=== PATIENT | female | born 1985 | race Caucasian/White ===

== ENCOUNTER 2016-10-23 12:03 | Emergency (ER) | payer OTHER ==
[~2016-10-23] VITALS: Ht 172.7 cm; Wt 65.2 kg
[~2016-10-23 12:03] MED LIST: ARIP1TAB8 PO; BUPR-79 PO; IBUP-103 PO
[2016-10-23 12:07] VITALS: TEMP 37.3; Ht 172.7 cm; Wt 65.2 kg
[2016-10-23 12:32] VITALS: PULSE 100; O2SAT 98
--- NOTE | 2016-10-23 12:38 | EMERGENCY ROOM VISIT NOTE ---
History Report prepared by Leigha: Krunal Love Under the Supervision of: Dr. Franco Mendoza D.O. First contact with patient: 12:11 Chief Complaint: MENTAL HEALTH EVALUATION Stated Complaint: SEVERE DEPRESSION/ANXIETY/STRESS, 10W History of Present Illness The patient is a 31 year old female who presents to the Emergency Room with complaints of constant depression beginning a few weeks prior to arrival. She states she is currently ten weeks , and she was taken off her anxiety and antidepressant medications. The patient notes she has recently been experiencing panic attacks, in which, she feels that she cannot breathe. The patient notes she called her OB, who referred the patient to the ED. She states she called her psychiatrist today and left a message but did not hear back. The patient notes she has had ultrasounds and workups for her normal . She states this is her third , in which, she had a previous baby and an . The patient notes she has a history of anxiety and depression, in which, she has been hospitalized in the past. She states she was last admitted to the [facility] last year. The patient notes she was on Abilify, Wellbutrin, and Xanax, and she is currently still on Wellbutrin. She states she was tapered off Xanax 2-3 weeks ago. The patient notes she has a history of IV drug use. 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 She states she has Hepatitis C and tested negative for HIV. The patient notes she feels safe at home. She denies thoughts of hurting herself or the baby, hearing voices, vaginal bleeding, and urinary symptoms. Source of History: patient Onset: few weeks CASINO ATTENDANT Position: other (global) Quality: other (depression) Timing: constant Associated Symptoms: No urinary symptoms Note: Associated symptoms: anxiety attacks Review of Systems See HPI for pertinent positives & negatives. A total of 10 systems reviewed and were otherwise negative. Past Medical & Surgical Medical Problems: (1) (2) ANXIETY STATE NOS (3) DEPRESSIVE DISORDER NEC (4) DRUG ABUSE NEC-UNSPEC (5) Hepatitis C (6) HISTORY OF TOBACCO USE (7) Vaginal delivery Family History Diabetes mellitus Heart disease Social History Smoking Status: Former Smoker Alcohol Use: none Drug Use: heroin, marijuana Marital Status: single Occupation Status: unemployed Current/Historical Medications Scheduled Aripiprazole (Abilify), 15 MG PO DAILY Bupropion (Wellbutrin Sr), 150 MG PO DAILY Hydroxyzine Pamoate (Vistaril), 25 MG PO Q6 Scheduled PRN Ibuprofen Tab (Advil), 400-600 MG PO Q8 PRN for Headache or Pain Allergies Coded Allergies: No Known Allergies (Unverified , 07/15/15) Physical Exam Vital Signs Date Time Temp Pulse Resp B/P Pulse Ox O2 Delivery O2 Flow Rate FiO2 10/23/16 13:30 20 155/95 10/23/16 12:32 100 18 158/64 98 Room Air 10/23/16 12:07 37.3 97 20 126/80 100 Room Air Physical Exam GENERAL: Patient is awake, alert, and mildly anxious appearing and tearful. EYES: The conjunctivae are clear. The pupils are round and reactive. EARS, NOSE, MOUTH AND THROAT: The nose is without any evidence of any deformity. Mucous membranes are moist tongue is midline NECK: The neck is nontender and supple. RESPIRATORY: Normal respiratory effort is noted there is no evidence of wheezing rhonchi or rales CARDIOVASCULAR: Regular rate and rhythm noted there no murmurs rubs or gallops normal S1 normal S2 GASTROINTESTINAL: The abdomen is soft. Bowel sounds are present in all quadrants. Abdomen is nontender MUSCULOSKELETAL/EXTREMITIES: There is no evidence of gross deformity full range of motion is noted in the hips and shoulders SKIN: There is no obvious evidence of any rash. There are no petechiae, pallor or cyanosis noted. NEUROLOGIC: Patient is awake alert and oriented x3 strength is symmetric patellar reflexes are 2+ bilaterally PSYCH: Tearful and depressed appearing. Currently denying suicidal and homicidal ideation. Makes good eye contact. Affect is flat. Medical Decision & Procedures Medications Administered Medications (Trade) Dose Ordered Sig/Dashawn Route Start Time Stop Time Status Last Admin Dose Admin Hydroxyzine HCl (Vistaril Tab) 25 mg NOW STAT PO 10/23/16 13:20 10/23/16 13:22 DC 10/23/16 13:26 25 MG ED Course 1215: The patient was evaluated in room A5. A complete history and physical examination were performed. 1320: Upon reevaluation, the patient is doing well. I discussed the results and treatment plan with her. She verbalized agreement of the treatment plan. The patient was discharged home. Medical Decision Etiologies such as mood disorder, infection, hypoglycemia, electrolyte abnormalities, cardiac sources, intracerebral event, toxicologic, neurologic, as well as others were entertained. Nursing notes reviewed. The patient is a 31-year-old female who presented to the emergency department for a mental health evaluation. The patient is a 31-year-old female who presented to emergency department for a mental health evaluation. The patient is currently . The patient stop taking some of her mental health medications because she was not comfortable taking these medications while she was . The patient started having very significant anxiety symptoms. She is very tearful and depressed. She is currently not suicidal or homicidal. She does not appear to be a threat to herself or others. She was evaluated by the emergency department mental health nurse case manager. She did not meet criteria for involuntary admission. The case was discussed with [facility]. They recommended starting the patient on Vistaril into if she could get back in with her primary psychiatrist for any further medication recommendations. She was encouraged to rest and avoid any strenuous activity. She was also encouraged to continue all medications as prescribed. She was also encouraged to call crisis or return to the emergency department immediately if symptoms change worsen or the need arises. Otherwise she was encouraged to follow-up with her therapist as soon as possible. Impression Primary Impression: Anxiety Additional Impression: Depression Scribe Attestation The scribe's documentation has been prepared under my direction and personally reviewed by me in its entirety. I confirm that the note above accurately reflects all work, treatment, procedures, and medical decision making performed by me. Departure Information Dispostion Home / Self-Care Prescriptions Hydroxyzine Pamoate (VISTARIL) 25 Mg Cap 25 MG PO Q6 for Anxiety/Insomnia, #25 CAP Prov: Franco Mendoza, DO 10/23/16 Referrals Arnav Gagnon M.D. (PCP) Forms HOME CARE DOCUMENTATION FORM, IMPORTANT VISIT INFORMATION, Work Instructions Patient Instructions Anxiety Disorder, Depression Counseling, [facility] Additional Instructions Follow-up with your therapist as soon as possible. Rest and avoid any strenuous activity. Call crisis or return to the emergency department immediately if symptoms change worsen or the need arises. Problem Qualifiers Additional Impression: Depression Depression Type: unspecified Qualified Codes: F32.9 - Major depressive disorder, single episode, unspecified
[2016-10-23] MEDS ORDERED: HYDR1CAP85 PO (13:10)
[2016-10-23] MEDS ORDERED: hydrOXYzine HCL 25 MG TAB PO STA (13:20)
[2016-10-23 13:30] VITALS: BP 155/95
== END 2016-10-23 13:29 | disposition home or self-care (01) ==
LOC: C.EDB 12:04 → C.EDA 13:29
DX: F41.9 Anxiety disorder, unspecified (principal); F32.9 Major depressive disorder, single episode, unspecified; Z83.3 Family history of diabetes mellitus; Z82.49 Family history of ischemic heart disease and other diseases of the circulatory system; Z87.891 Personal history of nicotine dependence; F19.90 Other psychoactive substance use, unspecified, uncomplicated; F12.90 Cannabis use, unspecified, uncomplicated

== ENCOUNTER 2016-11-07 19:21 | Emergency (ER) | payer OTHER ==
[~2016-11-07] VITALS: Ht 170.2 cm; Wt 64.1 kg
[2016-11-07 19:30] VITALS: Ht 170.2 cm; Wt 64.1 kg
[2016-11-07] MEDS ORDERED: BUPR8SUB19 SL (19:51)
[2016-11-07] MEDS ORDERED: VALA500T60 PO (19:51)
[2016-11-07 20:02] LABS: BASO % 0.3 %; BASO ABS # 0.02 K/uL (0-0.2); COMPLETE YES; EOS % 2.5 %; HEMATOCRIT 36.2 % (37-47); IG% 0.2 %; LYMPH % 48.4 %; MEAN CELL VOLUME 87.2 fL (80-100); MEAN CORPUSCULAR HEMOGLOBIN 31.6 pg (25-34); MEAN CORPUSCULAR HGB CONC 36.2 g/dl (32-36); MEAN PLATELET VOLUME 9.3 fL (7.4-10.4); MONO % 5.2 %; NEUT % 43.4 %; PLATELET COUNT 258 K/uL (130-400); RED BLOOD COUNT 4.15 M/uL (4.2-5.4)
[2016-11-07 20:11] LABS: PARTIAL THROMBOPLASTIN RATIO 1.1; PROTHROMBIN TIME (PATIENT) 11.1 SECONDS (9.0-12.0)
[2016-11-07 20:25] LABS: BUN/CREATININE RATIO 11.4 (10-20); CREATININE 0.56 mg/dl (0.60-1.20); POTASSIUM 3.3 mmol/L (3.5-5.1)
[2016-11-07 20:28] LABS: ALB/GLOB RATIO 1.1 (0.9-2)
[2016-11-07 20:38] LABS: URINE APPEARANCE CLOUDY (CLEAR); URINE BILIRUBIN NEG (NEG); URINE COLOR YELLOW; URINE NITRITE NEG (NEG); URINE PH 7.5 (4.5-7.5); URINE SPECIFIC GRAVITY 1.011 (1.000-1.030); UROBILINOGEN NEG (NEG)
[2016-11-07 20:41] LABS: MANUAL MICROSCOPIC REQUIRED? NO; REVIEW REQ? NO
--- NOTE | 2016-11-07 22:10 | DIAGNOSTIC IMAGING REPORT ---
ULTRASOUND OF THE PELVIS CLINICAL HISTORY: Vaginal bleeding. . COMPARISON STUDY: Pelvic ultrasound dated 05/09/2013. TECHNIQUE: Real-time, grayscale, and color flow sonography of the pelvis is performed transabdominally. Images are reviewed in the transverse and longitudinal planes. FINDINGS: Uterus: The gravid uterus is normal in size and heterogeneous in echotexture, measuring 10.8 cm in length. Gestation: The there is a single live uterine gestation with a heart rate of 161 bpm. The crown-rump length measured 5.4 cm, corresponding to estimated age of 12 weeks 2 days. Ovaries: The ovaries are normal in size and morphology. The right ovary measures 3.3 x 1.3 x 1.5 cm and the left ovary measures 2.8 x 2.6 x 2.2 cm. A follicle is noted on the left. Normal Doppler waveforms are shown within both ovaries. Pelvis: There is no free fluid in the cul-de-sac. No concerning adnexal lesion is seen. IMPRESSION: 1. There is a single live intrauterine gestation with an estimated age of 12 weeks 2 days by crown-rump length measurement. 2. No acute sonographic abnormality is identified in the pelvis. Electronically signed by: Vern Vaughan M.D. 11/07/2016 10:08 PM Dictated Date/Time: 11/07/2016 10:05 PM
--- NOTE | 2016-11-07 22:32 | EMERGENCY ROOM VISIT NOTE ---
History Report prepared by Leigha: Aaliyah Vargas Under the Supervision of: Adelita GarciaO. First contact with patient: 19:33 Chief Complaint: VAGINAL BLEEDING Stated Complaint: BLEEDING,12 WKS PREG History of Present Illness The patient is a 31 year old female who presents to the Emergency Room with complaints of intermittent vaginal bleeding beginning 1 hour MAMMALOGIST. The patient is 12 weeks . She is . She has not had any vaginal spotting with this , but has been experiencing morning sickness. She took a hot bath tonight and then went to the bathroom. She urinated and when she was wiping she noticed some bright red blood on the toilet paper. She states that it was not too heavy and there were no clots present. The patient denies any recent trauma or injury. She last had intercourse 2 nights ago. The patient denies abnormal vaginal discharge, abdominal pain, nausea, vomiting, diarrhea, and any recent heavy lifting. She is unsure what her blood type is. She had an US at 7 weeks which showed an IUP. Source of History: patient Onset: 1 hour MAMMALOGIST Position: other (vagina) Symptom Intensity: minimal Quality: other (bleeding) Timing: intermittent Associated Symptoms: No abdominal pain, No diarrhea, No nausea, No vomiting Note: The patient denies any recent trauma or injury. The patient denies abnormal vaginal discharge and any recent heavy lifting. Review of Systems See HPI for pertinent positives & negatives. A total of 10 systems reviewed and were otherwise negative. Past Medical & Surgical Medical Problems: (1) (2) ANXIETY STATE NOS (3) DEPRESSIVE DISORDER NEC (4) DRUG ABUSE NEC-UNSPEC (5) Hepatitis C (6) HISTORY OF TOBACCO USE (7) Vaginal delivery Family History Diabetes mellitus Heart disease Social History Smoking Status: Former Smoker Alcohol Use: none Drug Use: heroin, marijuana Marital Status: in relationship Housing Status: lives with family Occupation Status: employed Current/Historical Medications Scheduled Buprenorphine Hcl (Subutex), 1 TAB SL DAILY Multivit/Min/Iron/Fol Ac/Pren ( Vitamin), 1 TAB PO DAILY Valacyclovir (Valtrex), 500 MG PO DAILY Allergies Coded Allergies: No Known Allergies (Unverified , 11/07/16) Physical Exam Vital Signs Date Time Temp Pulse Resp B/P Pulse Ox O2 Delivery O2 Flow Rate FiO2 11/07/16 19:30 37.2 98 18 117/71 100 Room Air Physical Exam GENERAL: alert, well appearing, well nourished, no distress, non-toxic, sitting up in bed. EYE EXAM: normal conjunctiva OROPHARYNX: no exudate, no erythema, lips, buccal mucosa, and tongue normal and mucous membranes are moist NECK: supple, no nuchal rigidity, no adenopathy, non-tender LUNGS: Clear to auscultation. Normal chest wall mechanics HEART: no murmurs, S1 normal and S2 normal ABDOMEN: abdomen soft, non-tender, multiple old incisions, normo-active bowel sounds, no masses, no rebound or guarding. PELVIC: Normal external genitalia, normal vaginal mucosa, cervix is closed. Scant amount of dark pink blood present, no active bleeding. BACK: Back is symmetrical on inspection and there is no deformity, no midline tenderness, no CVA tenderness. SKIN: no rashes and no bruising UPPER EXTREMITIES: upper extremities are grossly normal. LOWER EXTREMITIES: No pitting edema. NEURO EXAM: Normal sensorium, cranial nerves II-XII grossly intact, normal speech, no gross weakness of arms, no gross weakness of legs. Medical Decision & Procedures ER Provider Diagnostic Interpretation: ULTRASOUND OF THE PELVIS CLINICAL HISTORY: Vaginal bleeding. . COMPARISON STUDY: Pelvic ultrasound dated 05/09/2013. TECHNIQUE: Real-time, grayscale, and color flow sonography of the pelvis is performed transabdominally. Images are reviewed in the transverse and longitudinal planes. FINDINGS: Uterus: The gravid uterus is normal in size and heterogeneous in echotexture, measuring 10.8 cm in length. Gestation: The there is a single live uterine gestation with a heart rate of 161 bpm. The crown-rump length measured 5.4 cm, corresponding to estimated age of 12 weeks 2 days. Ovaries: The ovaries are normal in size and morphology. The right ovary measures 3.3 x 1.3 x 1.5 cm and the left ovary measures 2.8 x 2.6 x 2.2 cm. A follicle is noted on the left. Normal Doppler waveforms are shown within both ovaries. Pelvis: There is no free fluid in the cul-de-sac. No concerning adnexal lesion is seen. IMPRESSION: 1. There is a single live intrauterine gestation with an estimated age of 12 weeks 2 days by crown-rump length measurement. 2. No acute sonographic abnormality is identified in the pelvis. Electronically signed by: Vern Vaughan M.D. 11/07/2016 10:08 PM Dictated Date/Time: 11/07/2016 10:05 PM Laboratory Results 11/07/16 19:47 Red Blood Count 4.15, Mean Corpuscular Volume 87.2, Mean Corpuscular Hemoglobin 31.6, Mean Corpuscular Hemoglobin Concent 36.2, Mean Platelet Volume 9.3, Neutrophils (%) (Auto) 43.4, Lymphocytes (%) (Auto) 48.4, Monocytes (%) (Auto) 5.2, Eosinophils (%) (Auto) 2.5, Basophils (%) (Auto) 0.3, Neutrophils # (Auto) 2.78, Lymphocytes # (Auto) 3.10, Monocytes # (Auto) 0.33, Eosinophils # (Auto) 0.16, Basophils # (Auto) 0.02 11/07/16 19:47 Test 11/07/16 19:47 11/07/16 20:05 White Blood Count 6.40 K/uL (4.8-10.8) Red Blood Count 4.15 M/uL (4.2-5.4) Hemoglobin 13.1 g/dL (12.0-16.0) Hematocrit 36.2 % (37-47) Mean Corpuscular Volume 87.2 fL (80-100) Mean Corpuscular Hemoglobin 31.6 pg (25-34) Mean Corpuscular Hemoglobin Concent 36.2 g/dl (32-36) Platelet Count 258 K/uL (130-400) Mean Platelet Volume 9.3 fL (7.4-10.4) Neutrophils (%) (Auto) 43.4 % Lymphocytes (%) (Auto) 48.4 % Monocytes (%) (Auto) 5.2 % Eosinophils (%) (Auto) 2.5 % Basophils (%) (Auto) 0.3 % Neutrophils # (Auto) 2.78 K/uL (1.4-6.5) Lymphocytes # (Auto) 3.10 K/uL (1.2-3.4) Monocytes # (Auto) 0.33 K/uL (0.11-0.59) Eosinophils # (Auto) 0.16 K/uL (0-0.5) Basophils # (Auto) 0.02 K/uL (0-0.2) RDW Standard Deviation 41.4 fL (36.4-46.3) RDW Coefficient of Variation 12.9 % (11.5-14.5) Immature Granulocyte % (Auto) 0.2 % Immature Granulocyte # (Auto) 0.01 K/uL (0.00-0.02) Prothrombin Time 11.1 SECONDS (9.0-12.0) Prothromb Time International Ratio 1.0 (0.9-1.1) Activated Partial Thromboplast Time 29.3 SECONDS (21.0-31.0) Partial Thromboplastin Ratio 1.1 Anion Gap 8.0 mmol/L (3-11) Est Creatinine Clear Calc Drug Dose 142.9 ml/min Estimated GFR () 145.0 Estimated GFR (Non- 125.1 BUN/Creatinine Ratio 11.4 (10-20) Calcium Level 9.0 mg/dl (8.5-10.1) Total Bilirubin 0.5 mg/dl (0.2-1) Aspartate Amino Transf (AST/SGOT) 61 U/L (15-37) Alanine Aminotransferase (ALT/SGPT) 145 U/L (12-78) Alkaline Phosphatase 46 U/L (45-117) Total Protein 7.6 gm/dl (6.4-8.2) Albumin 4.0 gm/dl (3.4-5.0) Globulin 3.6 gm/dl (2.5-4.0) Albumin/Globulin Ratio 1.1 (0.9-2) Human Chorionic Gonadotropin, Quant 09818 mIU/mL Urine Color YELLOW Urine Appearance CLOUDY (CLEAR) Urine pH 7.5 (4.5-7.5) Urine Specific Dillon 1.011 (1.000-1.030) Urine Protein NEG (NEG) Urine Glucose (UA) NEG (NEG) Urine Ketones NEG (NEG) Urine Occult Blood NEG (NEG) Urine Nitrite NEG (NEG) Urine Bilirubin NEG (NEG) Urine Urobilinogen NEG (NEG) Urine Leukocyte Esterase NEG (NEG) Urine WBC (Auto) 1-5 /hpf (0-5) Urine RBC (Auto) 0-4 /hpf (0-4) Urine Hyaline Casts (Auto) 1-5 /lpf (0-5) Urine Epithelial Cells (Auto) 10-20 /lpf (0-5) Urine Bacteria (Auto) NEG (NEG) Laboratory results per my review. ED Course ED COURSE: Vital signs were reviewed and showed normal vitals. The patients medical record was reviewed The above diagnostic studies were performed and reviewed. ED treatments and interventions as stated above. 1932: The patient was evaluated in room B10. A complete history and physical examination was performed. 2113: The patient is upset. She wants to know why nothing is being done and why she has not had an ultrasound yet. I explained to her that the ER is busy and she is next in line for US. I updated her on her lab-work. 2118: At this time I performed a pelvic exam. Please see the physical examination for my findings. 2217: Upon reevaluation, the patient is feeling better and resting comfortably. I discussed my findings with the patient and she understands and agrees with the treatment plan. Based on the patients age, coexisting illnesses, exam and lab findings the decision to treat as an outpatient was made. The patient remained stable while under my care. The patient appeared well at the time of discharge. Medical Decision Differential diagnoses includes but is not limited to gastritis, peptic ulcer disease, GERD, gallbladder disease, pancreatitis, small bowel obstruction, acute coronary syndrome, pericarditis, ischemic bowel, irritable bowel disease, irritable bowel syndrome, appendicitis, diverticulitis, malignancy, hernia, urinary tract infection, torsion, /ectopic , perforation, trauma, infectious. Patient is a 31-year-old female who is 12 weeks' present that presents the ER for a small amount of vaginal bleeding. She denies any trauma or recent intercourse. No fevers. She has no abdominal pain. Labs including CBC, BMP, was unremarkable. Labs show a mild transaminitis distant with her previous hepatitis. Beta hCG was elevated. UA was negative. Patient is AB+. Ultrasound was unremarkable. Pelvic exam shows a closed cervix. She was updated in regards to findings and was discharged to follow-up with OB in the next 1-2 days. She was instructed on strict pelvic rest. Discussed with Pt concerning signs and symptoms to watch out for. Pt was instructed to follow up with their PCP and discussed with the patient their option to return to the ED at anytime for persistent or worsening symptoms. The appropriate anticipatory guidance and out-patient management, including indications for return to the emergency department, were explained at length to the patient and understood. Impression Primary Impression: Vaginal bleeding Scribe Attestation The scribe's documentation has been prepared under my direction and personally reviewed by me in its entirety. I confirm that the note above accurately reflects all work, treatment, procedures, and medical decision making performed by me. Departure Information Dispostion Home / Self-Care Referrals Arnav Gagnon M.D. (PCP) Forms HOME CARE DOCUMENTATION FORM, IMPORTANT VISIT INFORMATION, WORK / SCHOOL INSTRUCTIONS Patient Instructions Bleeding Early Preg, [facility] Additional Instructions Please follow up with your Oncologist within next 1-2 days. Any worsening of your symptoms, please return to the ED immediately. This includes persistent bleeding, going through 1 pad an hour, passing tissue, severe pain, passing out, or any other concerning signs or symptoms from your standpoint. Please remain on pelvic rest for the next week. This means absolutely nothing in the vagina during this time period.
[2016-11-07 22:36] VITALS: BP 117/71; PULSE 98; TEMP 37.2; O2SAT 100
== END 2016-11-07 22:37 | disposition home or self-care (01) ==
LOC: C.EDB 19:22
DX: N93.9 Abnormal uterine and vaginal bleeding, unspecified (principal); F41.9 Anxiety disorder, unspecified; Z86.19 Personal history of other infectious and parasitic diseases; Z87.891 Personal history of nicotine dependence; F12.90 Cannabis use, unspecified, uncomplicated; F19.90 Other psychoactive substance use, unspecified, uncomplicated; Z3A.12 12 weeks gestation of pregnancy

== ENCOUNTER 2017-01-09 16:31 | Emergency (ER) | payer OTHER ==
[~2017-01-09] VITALS: Ht 172.7 cm; Wt 67.0 kg
[~2017-01-09 16:31] MED LIST changes: -ARIP1TAB8 PO; -BUPR-79 PO; +BUPR8SUB19 SL; -IBUP-103 PO; +VALA500T60 PO
[2017-01-09 16:38] VITALS: TEMP 37; Ht 172.7 cm; Wt 67.0 kg
[2017-01-09] MEDS ORDERED: OXYCODONE/ACETAMINOPHEN 5-325 TAB PO STA (17:04)
[2017-01-09] MEDS ORDERED: OXYC-57 PO (17:08)
--- NOTE | 2017-01-09 17:18 | EMERGENCY ROOM VISIT NOTE ---
History Report prepared by Leigha: Kd Armendariz Under the Supervision of: Dr. Vern John M.D. First contact with patient: 16:42 Chief Complaint: OTHER COMPLAINT Stated Complaint: VAGINAL SWELLING, PAIN AND BRUISING History of Present Illness The patient is a 31 year old female who presents to the Emergency Room with complaints of constant vaginal pain beginning 6 hours ago. She currently rates her discomfort an 8/10 in severity. The patient states that she was making breakfast this morning and went to pick something up off the ground. 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 The patient reports that she did not notice her daughter's chair behind her, and as she squatted, the chair hit her vaginal area. She states that she stayed on the ground, crying, waiting for her boyfriend to hear her and help her. The patient notes she put ice on it and took Tylenol. She reports she was seen at urgent care and was sent here for further evaluation. She denies any vaginal bleeding. The patient reports that she had an ultrasound the other day that showed the baby is developing properly. Source of History: patient Onset: 6 hours ago Position: other (vagina) Symptom Intensity: 8/10 Timing: constant Note: Denies vaginal bleeding Review of Systems See HPI for pertinent positives & negatives. A total of 10 systems reviewed and were otherwise negative. Past Medical & Surgical Medical Problems: (1) (2) ANXIETY STATE NOS (3) DEPRESSIVE DISORDER NEC (4) DRUG ABUSE NEC-UNSPEC (5) Hepatitis C (6) HISTORY OF TOBACCO USE (7) Vaginal delivery Family History Cancer Diabetes mellitus Heart disease Social History Smoking Status: Current Some Day Smoker Alcohol Use: none Drug Use: heroin, marijuana Marital Status: in relationship Housing Status: lives with family Occupation Status: employed Current/Historical Medications Scheduled Buprenorphine HCl (Buprenorphine HCl), 8 MG SL BID Multivit/Min/Iron/Fol Ac/Pren ( Vitamin), 1 TAB PO DAILY Valacyclovir HCl (Valacyclovir HCl), 500 MG PO DAILY Scheduled PRN Oxycodone/Acetaminophen 5MG/325MG (Percocet 5MG/325MG), 1 TAB PO Q4H PRN for Pain Allergies Coded Allergies: No Known Allergies (Unverified , 11/07/16) Physical Exam Vital Signs Date Time Temp Pulse Resp B/P (MAP) Pulse Ox O2 Delivery O2 Flow Rate FiO2 01/09/17 17:25 99 18 119/79 99 01/09/17 16:38 37.0 114 18 127/70 99 Room Air Physical Exam GENERAL: Laying on stretcher, no distress NEURO: Awake, alert, oriented x3, no focal motor deficit VAGINAL (performed in the presence of a female nurse buildings and grounds coordinator): 3-4 cm presumed hematoma on the right labia, no internal vaginal bleeding, no lacerations, tenderness to palpation noted, the area is somewhat firm to touch. No cellulitis. Medical Decision & Procedures Medications Administered Medications (Trade) Dose Ordered Sig/Dashawn Route Start Time Stop Time Status Last Admin Dose Admin Oxycodone/ Acetaminophen (Percocet 5-325mg Tab) 1 tab NOW STAT PO 01/09/17 17:04 01/09/17 17:05 DC 01/09/17 17:20 1 TAB ED Course 165: The patient was evaluated in room C04. A complete history and physical exam was performed. 165: I discussed the patient's case with Le Mcmullen BLASTING COAL MINER. He states that Percocet is an acceptable pain medication. 1704: Ordered Percocet 5-325mg Tab 1 tab PO 1705: I discussed the treatment plan and exam findings with the patient. She verbalized complete understanding of the discharge instructions. The patient will be discharged home. Medical Decision Differential diagnosis includes: vaginal laceration, vaginal bleeding, vaginal contusion, hematoma Medication Reconciliation: I attest that I have personally reviewed the patient' s current medication list. Blood Pressure Screening: Patient was found to have normal blood pressure on screening and does not require follow-up. The patient presents with an injury to the vaginal area. She has a right sided labial hematoma I suspect. There is no evidence for internal vaginal bleeding. There is no laceration requiring repair. No cellulitis. I did speak to the OB doctor highway traffic control technician, he recommended ice, rest, Percocet for pain and a follow-up in the office in a few days. The patient was encouraged to return for uncontrolled pain, worsening swelling or worsening symptoms. [place] Drug Monitoring Program Search Results: patient reviewed within database, no issues identified Drug Monitoring Findings: On chronic buprenorphine Consults Time Called: 1651 Consulting Physician: Le Mcmullen BLASTING COAL MINER Returned Call: [phone] I discussed the patient's case with Le Mcmullen BLASTING COAL MINER. He states that Percocet is an acceptable pain medication. Impression Primary Impression: Vaginal hematoma Scribe Attestation The scribe's documentation has been prepared under my direction and personally reviewed by me in its entirety. I confirm that the note above accurately reflects all work, treatment, procedures, and medical decision making performed by me. Departure Information Dispostion Home / Self-Care Prescriptions Oxycodone/Acetaminophen 5MG/325MG (PERCOCET 5MG/325MG) Tab 1 TAB PO Q4H Y for Pain, #6 TAB Prov: Vern John M.D. 01/09/17 Referrals No Doctor, Assigned (PCP) Forms HOME CARE DOCUMENTATION FORM, IMPORTANT VISIT INFORMATION, WORK / SCHOOL INSTRUCTIONS Patient Instructions My [facility] Additional Instructions ice to the area--30 minutes off and 30 minutes on percocet 1 tab every 4 hours for severe pain try to stay off of your feet see ob tomorrow for a recheck return for worsening swelling, fever or uncontrolled pain
[2017-01-09] MEDS ORDERED: SBTSL/8 SL (17:20)
[2017-01-09] MEDS ORDERED: VLT500 PO (17:20)
[2017-01-09 17:25] VITALS: BP 119/79; PULSE 99; O2SAT 99
[2017-01-09] MEDS ORDERED: PRENTAB26 PO (19:51)
== END 2017-01-09 17:26 | disposition home or self-care (01) ==
LOC: C.EDB 16:33 → C.EDC 17:26
DX: S30.23XA Contusion of vagina and vulva, initial encounter (principal); X58.XXXA Exposure to other specified factors, initial encounter; F41.9 Anxiety disorder, unspecified; F32.9 Major depressive disorder, single episode, unspecified; B19.20 Unspecified viral hepatitis C without hepatic coma; F17.200 Nicotine dependence, unspecified, uncomplicated; Z79.899 Other long term (current) drug therapy; Z80.9 Family history of malignant neoplasm, unspecified; Z83.3 Family history of diabetes mellitus; Z82.49 Family history of ischemic heart disease and other diseases of the circulatory system

== ENCOUNTER 2017-05-06 21:04 | Inpatient (IN) | payer OTHER ==
[~2017-05-06] VITALS: Ht 170.2 cm; Wt 67.1 kg
[~2017-05-06 21:04] MED LIST changes: -BUPR8SUB19 SL; +OXYC-57 PO; +PRENTAB26 PO; +SBTSL/8 SL; -VALA500T60 PO; +VLT500 PO
[2017-05-06] MEDS ORDERED: LACTATED RINGER'S 1000ML 1,000 ML IV PRN (22:05)
[2017-05-06] MEDS ORDERED: LACTATED RINGER'S 1000ML 1,000 ML IV SCH (22:05)
[2017-05-06 22:34] LABS: HEMATOCRIT 35.6 % (37-47); MEAN CELL VOLUME 91.8 fL (80-100); MEAN CORPUSCULAR HEMOGLOBIN 30.9 pg (25-34); MEAN CORPUSCULAR HGB CONC 33.7 g/dl (32-36); MEAN PLATELET VOLUME 9.4 fL (7.4-10.4); PLATELET COUNT 339 K/uL (130-400); RED BLOOD COUNT 3.88 M/uL (4.2-5.4); WHITE BLOOD COUNT 16.12 K/uL (4.8-10.8)
[2017-05-06] MEDS ORDERED: BUPIVACAINE 0.25% 30 ML VIAL ONE (22:36)
[2017-05-06] MEDS ORDERED: EpHEDrine SULFATE INJ 50 MG/ML AMP ONE (22:36)
[2017-05-06] MEDS ORDERED: FENTANYL CITRATE INJ 50 MCG/1 ML 2 ML VIAL ONE (22:37)
[2017-05-06] MEDS ORDERED: FENTANYL 2MCG/ML ROPIV 1.25MG/ML 100ML BAG EPI ONE (22:37)
[2017-05-06] MEDS ORDERED: SERT50TA PO (23:15)
[2017-05-07] MEDS ORDERED: NALOXONE HCL INJ 1 MG in SODIUM CHLORIDE 0.9% 1000ML 1,000 ML IV PRN (00:14)
[2017-05-07] MEDS ORDERED: LACTATED RINGER'S 1000ML 500 ML IV PRN (00:14)
[2017-05-07] MEDS ORDERED: DiphenhydrAMINE HCL 50 MG/ML VIAL IV PRN (00:15)
[2017-05-07] MEDS ORDERED: NALOXONE HCL INJ 0.4 MG/1 ML VIAL/CARP IV PRN (00:15)
[2017-05-07] MEDS ORDERED: EpHEDrine SULFATE INJ 50 MG/ML AMP IV PRN (00:15)
[2017-05-07] MEDS ORDERED: NALBUPHINE HCL INJ 10 MG/ML AMP IV PRN (00:15)
[2017-05-07] MEDS ORDERED: FENTANYL 2MCG/ML ROPIV 1.25MG/ML 100ML BAG EPI PRN (00:15)
[2017-05-07] MEDS ORDERED: ONDANSETRON INJ 2 MG/ML 2 ML VIAL IV PRN (00:15)
[2017-05-07 00:41] VITALS: Ht 170.2 cm; Wt 67.1 kg
[2017-05-07] MEDS ORDERED: OXYTOCIN 30 UNITS/500ML NSS IV ONE (00:57)
[2017-05-07] MEDS ORDERED: LACTATED RINGER'S 1000ML 1,000 ML IV SCH (02:07)
[2017-05-07] MEDS ORDERED: ACETAMINOPHEN 325 MG TAB PO PRN (02:15)
[2017-05-07] MEDS ORDERED: BENZOCAINE 20% AER SPR 82.5 GM CAN EXT PRN (02:15)
[2017-05-07] MEDS ORDERED: LANOLIN OINT EXT PRN ×2 (02:15)
[2017-05-07] MEDS ORDERED: HYDROCORTISONE ACETATE 25 MG SUPP PR PRN (02:15)
[2017-05-07] MEDS ORDERED: SUPERCREAM 0.870 % 15GM JAR EXT PRN (02:15)
[2017-05-07] MEDS ORDERED: OXYTOCIN 30 UNITS/500ML NSS IV PRN (02:15)
--- NOTE | 2017-05-07 02:54 | DELIVERY SUMMARY ---
DATE OF OPERATION: 05/07/2017 TIME OF DELIVERY: 0148 a.m. DETAILS OF DELIVERY: The patient was found to be fully dilated and desired to push. She pushed for 3 times and delivered the head without difficulty. Shoulders were delivered with minimal traction. There was a tight nuchal cord around the neck x1 which was reduced while delivering the shoulders. The baby was handed off to the mother where mouth and nares were suctioned. Cord was clamped x2 and cut. It was a 3-vessel cord. Vagina and perineum were checked for lacerations. There was only first-degree labial laceration on the left labia minora which was repaired with 3-0 Vicryl and SH needle. Excellent hemostasis was achieved. Rest of the vagina and perineum were intact and then placenta was found to be in the vagina and delivered spontaneously as intact and complete at 1:55 a.m. Uterus was explored and found to be empty. Fundus was firm. Lower segment was cleared of all clots and debris. EBL was 200. Mother and baby tolerated the procedure well. Sponge, needle and instrument count was correct x2. Baby was a viable male . Apgars were 8/9. Weight is pending. No complications happened, and I was present during the whole procedure. I attest to the content of the Intraoperative Record and any orders documented therein. Any exception s are noted below.
[2017-05-07 04:20] VITALS: BP 98/61; PULSE 89; TEMP 36.9; O2SAT 96
[2017-05-07] MEDS: OXYCODONE/ACETAMINOPHEN 5-325 TAB PO PRN ×2 (06:43→14:34)
[2017-05-07] MEDS: IBUPROFEN 600 MG TAB PO PRN ×2 (06:43→14:34)
[2017-05-07 08:01] VITALS: BP 107/54; PULSE 85; TEMP 36.6
--- NOTE | 2017-05-07 08:09 | Anesthesia Procedure Note ---
Anesthesia Epidural Removal Nt Date & Time May 07, 2017 at 08:09 Vital Signs Pain Intensity: 4.0 Vital Signs Past 12 Hours Date Time Temp Pulse Resp B/P (MAP) Pulse Ox O2 Delivery O2 Flow Rate FiO2 05/07/17 08:01 36.6 85 20 107/54 (71) 05/07/17 04:20 36.9 89 16 98/61 (73) 96 Room Air 05/07/17 04:20 96 Room Air Notes Mental Status: alert / awake / arousable, participated in evaluation Nausea / Vomiting: adequately controlled Pain: adequately controlled Airway Patency, RR, SpO2: stable & adequate BP & HR: stable & adequate Hydration State: stable & adequate Neuraxial Anesthesia: was administered, sensory block is resolved Anesthetic Complications: no major complications apparent, pt satisfied with anesthetic care Epidural: removed without complications, with tip intact
[2017-05-07] MEDS: FERROUS SULFATE 325 MG TAB PO SCH (08:13)
[2017-05-07] MEDS: PRENATAL VITAMIN TAB PO SCH (08:13)
[2017-05-07] MEDS: DOCUSATE SODIUM 100 MG CAP PO SCH ×2 (08:13→19:41)
[2017-05-07] MEDS: SERTRALINE HCL 100 MG TAB PO SCH (10:53)
[2017-05-07] MEDS: BUPRENORPHINE HCL 8 MG SUBL SL SCH ×2 (10:53→19:41)
[2017-05-07 12:05] VITALS: BP 105/66; PULSE 73; TEMP 37.3
[2017-05-07 16:56] VITALS: BP 110/72; PULSE 84; TEMP 36.9
[2017-05-07] MEDS ORDERED: BISACODYL 5 MG TABEC PO SCH (20:00)
[2017-05-07 20:02] VITALS: BP 119/73; PULSE 80; TEMP 36
[2017-05-07] MEDS ORDERED: NURSING VERBAL MED ORDER ONE (20:30)
[2017-05-08] VITALS: BP 98/52; PULSE 80; TEMP 37
[2017-05-08] MEDS ORDERED: BISACODYL 10 MG SUPP PR PRN (07:00)
[2017-05-08 07:21] VITALS: BP 111/72; PULSE 76; TEMP 37
[2017-05-08 07:41] LABS: HEMATOCRIT 33.6 % (37-47)
[2017-05-08] MEDS: PRENATAL VITAMIN TAB PO SCH (07:59)
[2017-05-08] MEDS: FERROUS SULFATE 325 MG TAB PO SCH (07:59)
[2017-05-08] MEDS: SERTRALINE HCL 100 MG TAB PO SCH (07:59)
[2017-05-08] MEDS: DOCUSATE SODIUM 100 MG CAP PO SCH ×2 (07:59→19:38)
[2017-05-08] MEDS: IBUPROFEN 600 MG TAB PO PRN ×3 (08:01→21:44)
[2017-05-08] MEDS: BUPRENORPHINE HCL 8 MG SUBL SL SCH ×2 (08:17→19:38)
[2017-05-08] MEDS ORDERED: DIPHTHERIA/TETANUS/PERTUSSIS 0.5 ML SYR/VIAL IM. ONE (09:00)
[2017-05-08] MEDS ORDERED: NICOTINE 14 MG/24 HR TDSY TD SCH (09:00)
[2017-05-08] MEDS ORDERED: MEASLES, MUMPS & RUBELLA VIRUS VIAL SQ. ONE (09:00)
[2017-05-08] MEDS: NICOTINE 14 MG/24 HR TDSY TD SCH (10:05)
--- NOTE | 2017-05-08 10:22 | OB/GYN Progress Note ---
CRYSTAL LAPPER Progress Note Date of Service May 08, 2017. Subjective conversation w/ patient, physical exam Ambulation: ambulating normally Voiding: no voiding problems Passing Gas: Yes Diet Tolerance: Regular Diet Lochia: Moderate Feeding Type: Breast Feeding Review of Systems Constitutional: No fever, No chills, No sweats, No weight loss, No weakness, No fatigue, No problem reported Respiratory: No cough, No sputum, No wheezing, No shortness of breath, No dyspnea on exertion, No dyspnea at rest, No hemoptysis, No problem reported Cardiac: No chest pain, No orthopnea, No PND, No edema, No claudication, No palpitations, No problem reported Breast: No see HPI, No breast lump, No change in shape, No nipple discharge, No breast pain, No problem reported Abdomen: No pain, No nausea, No vomiting, No diarrhea, No constipation, No GI bleeding, No problem reported Female : No see HPI, No dysuria, No urinary frequency, No hematuria, No incontinence, No abnormal vaginal bleeding, No vaginal discharge, No problem reported Objective Vital Signs Date Time Temp Pulse Resp B/P (MAP) Pulse Ox O2 Delivery O2 Flow Rate FiO2 05/08/17 07:21 37.0 76 16 111/72 (85) Room Air 05/08/17 00:00 Room Air 05/08/17 00:00 37.0 80 18 98/52 (67) Room Air 05/07/17 20:02 36.0 80 18 119/73 (88) Room Air 05/07/17 16:56 36.9 84 20 110/72 (85) 05/07/17 12:05 37.3 73 20 105/66 (79) Physical Exam General Appearance: WELL-APPEARING, WD/WN, NO APPARENT DISTRESS Respiratory/Chest: chest non-tender, lungs clear, normal breath sounds, no respiratory distress, no accessory muscle use Cardiovascular: regular rate, rhythm, no edema, no gallop, no JVD, no murmur Abdomen: normal bowel sounds, non tender, soft, no organomegaly, no pulsatile mass Fundus: Firm Extremities: normal range of motion, non-tender, normal inspection, no pedal edema, no calf tenderness Laboratory Results Last 24 Hours Test 05/08/17 06:39 Hemoglobin 11.4 g/dL Hematocrit 33.6 % Assessment and Plan Day Number: 1 Continue Routine Care: PPd #1 pt doing well On Suboxone anticipate disch tomorrow
[2017-05-08 15:50] VITALS: BP 103/64; PULSE 70; TEMP 36.8
[2017-05-08] MEDS: OXYCODONE/ACETAMINOPHEN 5-325 TAB PO PRN (21:44)
[2017-05-08 22:40] VITALS: BP 111/67; PULSE 76; TEMP 37.3; O2SAT 96
[2017-05-09 06:10] LABS: HEMATOCRIT 33.4 % (37-47); MEAN CELL VOLUME 93.8 fL (80-100); MEAN CORPUSCULAR HGB CONC 34.1 g/dl (32-36); MEAN PLATELET VOLUME 9.5 fL (7.4-10.4); PLATELET COUNT 337 K/uL (130-400); RED BLOOD COUNT 3.56 M/uL (4.2-5.4); WHITE BLOOD COUNT 11.32 K/uL (4.8-10.8)
[2017-05-09] MEDS: IBUPROFEN 600 MG TAB PO PRN (06:22)
[2017-05-09 07:23] VITALS: BP 109/72; PULSE 88; TEMP 36.4; O2SAT 98
--- NOTE | 2017-05-09 07:48 | OB/GYN Progress Note ---
HIGH PRESSURE OPERATOR Progress Note Date of Service May 09, 2017. Subjective conversation w/ patient Ambulation: ambulating normally Voiding: no voiding problems Passing Gas: Yes Diet Tolerance: Regular Diet Lochia: Moderate Pain: minimal Notes: Doing well, no concerns. Pain well controlled. Tolerating regular diet, +flatus , +BM. Ambulating without difficulty. Lochia decreasing. Would like to be discharged today. Review of Systems Constitutional: No fever, No chills, No sweats, No weight loss, No weakness, No fatigue, No problem reported Respiratory: No cough, No sputum, No wheezing, No shortness of breath, No dyspnea on exertion, No dyspnea at rest, No hemoptysis, No problem reported Cardiac: No chest pain, No orthopnea, No PND, No edema, No claudication, No palpitations, No problem reported Abdomen: No pain, No nausea, No vomiting, No diarrhea, No constipation, No GI bleeding, No problem reported Female : No see HPI, No dysuria, No urinary frequency, No hematuria, No incontinence, No abnormal vaginal bleeding, No vaginal discharge, No problem reported Objective Vital Signs Date Time Temp Pulse Resp B/P (MAP) Pulse Ox O2 Delivery O2 Flow Rate FiO2 05/09/17 07:23 36.4 88 20 109/72 (84) 98 Room Air 05/08/17 22:40 Room Air 05/08/17 22:40 37.3 76 16 111/67 (82) 96 Room Air 05/08/17 15:50 36.8 70 20 103/64 (77) Room Air 05/08/17 15:50 Room Air Laboratory Results Last 24 Hours Test 05/09/17 05:41 White Blood Count 11.32 K/uL Red Blood Count 3.56 M/uL Hemoglobin 11.4 g/dL Hematocrit 33.4 % Mean Corpuscular Volume 93.8 fL Mean Corpuscular Hemoglobin 32.0 pg Mean Corpuscular Hemoglobin Concent 34.1 g/dl RDW Standard Deviation 48.7 fL RDW Coefficient of Variation 14.2 % Platelet Count 337 K/uL Mean Platelet Volume 9.5 fL Assessment and Plan Day Number: 2 Continue Routine Care: -D/C home today -F/U in 6 weeks.
[2017-05-09] MEDS ORDERED: MTR600X PO (07:49)
--- NOTE | 2017-05-09 07:50 | Discharge Instructions ---
Discharge Instructions Date of Service May 09, 2017. Admission Reason for Admission: Check Labor Discharge Discharge Diagnosis / Problem: Vaginal Delivery Discharge Goals Goal(s): Routine recovery after delivery Medications Continue Dispensed Medications: supercream, dermaplast, tucks, lansinoh Activity Recommendations Activity Limitations: per Instructions/Follow-up section . Instructions / Follow-Up Instructions / Follow-Up ACTIVITY RECOMMENDATIONS: * Gradual return to full activity over the next 2-3 weeks. * No lifting - nothing heavier than baby over the next 2-3 weeks. * Do not engage in vigorous exercise, sexual activity or sports until cleared by your physician. * Do not drive or operate any motorized equipment until cleared by your physician. * You may shower/bathe daily. BREAST CARE: If you are not breast feeding: * Wear a supportive bra 24 hours a day for one to two weeks. * Avoid stimulating your breasts and nipples as much as possible during the first few weeks after delivery. * When taking a shower, have the warm water hit your back, not breasts. * When your breasts feel full, apply ice packs. Usually three to four times a day helps ease the discomfort. * Take a mild pain medication (Tylenol/Motrin) when you are uncomfortable. If breast feeding: * Use breast milk to lubricate nipples. Lansinoh cream may be used for sore nipples. You do not need to remove cream prior to breast feeding. If using a different brand of cream, check the label for directions regarding removal of cream prior to nursing. * Wear a supportive bra. * If having problems with breasts or breast feeding, call a contact center consultant or your health care provider. EPISIOTOMY CARE: After delivery, if you have an episiotomy (stitches), the following steps will ease discomfort and aid healing. * For the first 24 hours after delivery, place ice packs next to your episiotomy to help reduce swelling. * After the first 24 hour-period, sitz baths, either portable or in the tub, are suggested. A shower with a shower arm sprayed over the episiotomy may be comforting. * Susanna care should be done after each voiding and bowel movement. Squirt warm water from a plastic bottle over the perineum (region of the body between the anus and urinary opening) and pat dry. * Use Dermoplast to ease discomfort. Shake container. [place] directly over the episiotomy. * Place a Tucks on a clean sanitary pad next to your episiotomy. OVER THE COUNTER MEDICATION: * For discomfort or pain, you may use Acetaminophen (Tylenol), Ibuprofen (Advil ), or Naproxen (Aleve) following the package directions. * For constipation you may use Colace following the package directions. SPECIAL CARE INSTRUCTIONS: When you are discharged from the hospital, it is important for you to follow the instructions listed below: * During the first week at home, you should be able to care for yourself and your baby. In addition, the usual light household activities are encouraged. * Limit your activities to the way you feel. Do not try to clean the house or move furniture. Be sensible. * If you actively engage in sports and have done so up until the time of your delivery, you may resume these activities as soon as you feel able. This may take up to one month or even longer. Use good judgment. * Continue to take your vitamins for at least six weeks after the of your baby. * Your diet need not be limited unless you were on a special diet before your delivery. Breast-feeding mothers need around 2500 calories per day and at least 64-80 ounces of fluid per day (8 to 10 glasses). * You should eat foods from the four major food groups. Crash diets or fad diets are to be avoided. Eating lean meats, fresh fruits and vegetables, low-fat dairy products, high fiber foods and a regular exercise program, will help you get back to your pre- weight without putting your health at risk. * Constipation is sometimes a problem after delivery. Take a mild laxative as needed. If breast feeding, Milk of Magnesia is acceptable to use. You may use a suppository or Fleets enema if no episiotomy. * A daily shower or tub bath is suggested. Be sure to thoroughly and gently dry the perineum. * A bloody vaginal discharge will usually continue until around four weeks post . A small amount of bleeding may continue for as long as six weeks. Vaginal discharge changes from the bright red bleeding after delivery to pink then brownish and finally yellowish-pink before becoming white and disappearing. * Bleeding may increase with activity. Your first period may come in 4-8 weeks. If you are breast feeding, your period may be delayed even longer. * [place] (sex) can begin whenever both you and your partner feel comfortable and do not have any form of genital infection. It is recommended that you wait until after your return appointment and discuss with your physician. If you have questions, please talk to your health care practitioner. A condom should be used to prevent infection and . * Foreplay, gentle intercourse and lubrication is very important the first several times to prevent pain. A water-based lubricant such as K-Y jelly or Astroglide may be used. * Tampons may be used six weeks after delivery. * Douching should be avoided for 6 weeks after delivery. * If you have RH negative blood and your baby is RH positive, you will receive RHOGAM by injection prior to discharge. The nurse will give you a card to keep with you that has the date and place that you received RHOGAM after delivery. * During your care, you had a Rubella screen done to check for the presence of rubella antibodies in your blood. If your test was negative, you will receive a Rubella vaccine prior to discharge. This vaccine may cause a fever, soreness at the injection site and flu-like symptoms. If these symptoms persist, notify your health care practitioner. is not advised for three months after a Rubella vaccine. There is a higher chance of having a baby with defects if conceived within three months of getting the vaccine. * If you were discharged 24 hours from delivery or before 48 hours: Visiting nurses will come to your home 48 hours after discharge to assess you and your baby. The visiting nurse will meet with you while you are in the hospital to arrange a time and get directions to your home. * Verbalizes understanding of car seat law as reviewed with patient nursing. * Car Seat hand-out given and reviewed with patient by nursing. * Shaken baby information reviewed with patient by nursing. Call you doctor if: * Heavy bleeding (saturating several pads an hour) or passing clots the size of your fist. * A fever >101 degrees F (38.3 degrees C) on two occasions four hours apart and/or chills. * Unusual pain in the pelvic or vaginal areas. * "Baby Blues" lasting longer than two weeks. If you have any questions or concerns, call your health care practitioner at . FOLLOW-UP VISIT: * Please call the office at to schedule a 6 week examination. It is important you keep this appointment. * It is important for you to make arrangements for either yearly or twice yearly check-ups thereafter. Current Hospital Diet Patient's current hospital diet: Regular OB Diet Discharge Diet Recommended Diet: Regular OB Diet Pending Studies Studies pending at discharge: no Medical Emergencies . Who to Call and When: Medical Emergencies: If at any time you feel your situation is an emergency, please call 911 immediately. . Non-Emergent Contact Non-Emergency issues call your: Primary Care Provider, Professor Of Graphic Design . . "Provider Documentation" section prepared by Kd Coon. . VTE Core Measure Inpt VTE Proph given/why not?: Treatment not indicated
[2017-05-09] MEDS: DOCUSATE SODIUM 100 MG CAP PO SCH (08:07)
[2017-05-09] MEDS: BUPRENORPHINE HCL 8 MG SUBL SL SCH (08:07)
[2017-05-09] MEDS: FERROUS SULFATE 325 MG TAB PO SCH (08:07)
[2017-05-09] MEDS: SERTRALINE HCL 100 MG TAB PO SCH (08:07)
[2017-05-09] MEDS: PRENATAL VITAMIN TAB PO SCH (08:07)
[2017-05-09] MEDS: NICOTINE 14 MG/24 HR TDSY TD SCH (08:09)
[2017-05-09 09:45] VITALS: BP_DIAS 72; PULSE 88; TEMP 36.4
== END 2017-05-09 10:00 | disposition home or self-care (01) | DRG 775 ==
LOC: C.LD 21:04 → C.OPB 21:04 → C.LD 22:06 → C.OPB 22:06 → C.OBG 05-07 04:16
PROVIDERS: ADMIT Obstetrics & Gynecology; ATTEND Obstetrics & Gynecology
PROC: 10E0XZZ Delivery of Products of Conception, External Approach (ICD-10-PCS; principal; 2017-05-07)
PROC: 0HQ9XZZ Repair Perineum Skin, External Approach (ICD-10-PCS; principal; 2017-05-07)
DX: O99.324 Drug use complicating childbirth (principal); O70.0 First degree perineal laceration during delivery; O69.1XX0 Labor and delivery complicated by cord around neck, with compression, not applicable or unspecified; O99.344 Other mental disorders complicating childbirth; F32.9 Major depressive disorder, single episode, unspecified; O99.334 Smoking (tobacco) complicating childbirth; F17.200 Nicotine dependence, unspecified, uncomplicated; F11.90 Opioid use, unspecified, uncomplicated; Z79.899 Other long term (current) drug therapy; Z3A.38 38 weeks gestation of pregnancy; Z37.0 Single live birth; Z86.19 Personal history of other infectious and parasitic diseases

== ENCOUNTER 2017-10-22 12:19 | Emergency (ER) | payer OTHER ==
[~2017-10-22] VITALS: Ht 170.2 cm; Wt 70.8 kg
[~2017-10-22 12:19] MED LIST changes: +MTR600X PO; -OXYC-57 PO; +SERT50TA PO
[2017-10-22 12:23] VITALS: TEMP 36.7; Ht 170.2 cm; Wt 70.8 kg
[2017-10-22] MEDS ORDERED: CTP1CL PO (13:56)
[2017-10-22] MEDS ORDERED: CTP1 PO (13:56)
[2017-10-22] MEDS ORDERED: BUPR150T7 PO (13:56)
[2017-10-22] MEDS ORDERED: NRN600 PO (13:56)
[2017-10-22] MEDS ORDERED: ALPR1TAB2 PO (13:56)
[2017-10-22] MEDS ORDERED: BUPR1SUB23 PO (13:56)
[2017-10-22] MEDS ORDERED: BUPR2SUB SL (13:56)
[2017-10-22 14:05] LABS: HEMATOCRIT 42.3 % (37-47); HEMOGLOBIN 14.6 g/dL (12.0-16.0); MEAN CELL VOLUME 87.8 fL (80-100); MEAN CORPUSCULAR HEMOGLOBIN 30.3 pg (25-34); MEAN CORPUSCULAR HGB CONC 34.5 g/dl (32-36); MEAN PLATELET VOLUME 9.6 fL (7.4-10.4); PLATELET COUNT 272 K/uL (130-400); RED CELL DISTRIBUTION WIDTH CV 13.4 % (11.5-14.5); RED CELL DISTRIBUTION WIDTH SD 43.2 fL (36.4-46.3); WHITE BLOOD COUNT 6.17 K/uL (4.8-10.8)
[2017-10-22 14:18] LABS: ALBUMIN 3.8 gm/dl (3.4-5.0); CALCIUM 8.9 mg/dl (8.5-10.1); CREATININE 0.91 mg/dl (0.60-1.20); POTASSIUM 3.8 mmol/L (3.5-5.1)
[2017-10-22 14:24] VITALS: BP 100/59; PULSE 93; O2SAT 98
[2017-10-22 14:28] LABS: TOTAL PROTEIN 7.8 gm/dl (6.4-8.2)
--- NOTE | 2017-10-22 17:32 | EMERGENCY ROOM VISIT NOTE ---
History Report prepared by Leigha: John Stone Under the Supervision of: Dr. Pavan Banda M.D. First contact with patient: 12:23 Chief Complaint: PSYCHIATRIC PROBLEMS Stated Complaint: NEED TESTING FOR PSYCH ADMIT History of Present Illness The patient is a 32 year old female who presents to the Emergency Room with complaints of persistent suicidal ideations that began a week ago. The patient states that she has been stressed recently due to having a 5 month old and her mother being ill. She reports that she has been having trouble with keeping up with her family life. The patient reports that she also believes she has been having suicidal ideations because her medication recently change. She states that she has a history of cutting herself and reports she would cut herself if she was going to kill herself. The patient reports she is a recovering addict and injected 2 bags of drugs yesterday. She states that she is unsure what was in the bags but believes it was heroine. The patient denies diarrhea, chest pain , abdominal pain, fever, and access to firearms. She reports that she attempted to commit suicide in 2016, which she was hospitalized for. The patient reports a history of major depressive disorder and believes she is bipolar. She states that she is currently taking Wellbutrin. Source of History: patient Onset: a week ago Position: other (global) Quality: other (suicidal ideations) Timing: other (persistent) Associated Symptoms: No fevers, No chest pain, No abdominal pain, No diarrhea Review of Systems See HPI for pertinent positives & negatives. A total of 10 systems reviewed and were otherwise negative. Past Medical & Surgical Medical Problems: (1) (2) ANXIETY STATE NOS (3) DEPRESSIVE DISORDER NEC (4) DRUG ABUSE NEC-UNSPEC (5) Hepatitis C (6) HISTORY OF TOBACCO USE (7) Uterine contractions at greater than 20 weeks of gestation (8) Vaginal delivery Family History Cancer Diabetes mellitus Heart disease Social History Smoking Status: Current Every Day Smoker Alcohol Use: none Drug Use: heroin, marijuana Marital Status: in relationship Housing Status: lives with family Occupation Status: employed Current/Historical Medications Scheduled Alprazolam (Xanax), 1 MG PO BID Buprenorphine Hcl (Subutex), 1 TAB SL UD Bupropion Hcl (Wellbutrin Sr), 150 MG PO QAM Clonidine HCl (Clonidine HCl), 1 TAB PO HS Clonidine Hcl (Catapres), 1 TAB PO BID Gabapentin (Gabapentin), 1.5 TAB PO TID Allergies Coded Allergies: No Known Allergies (Unverified , 10/22/17) Physical Exam Vital Signs Date Time Temp Pulse Resp B/P (MAP) Pulse Ox O2 Delivery O2 Flow Rate FiO2 10/22/17 14:24 93 14 100/59 98 Room Air 10/22/17 12:23 36.7 112 16 119/74 99 Room Air Physical Exam Constitutional: Vital signs reviewed. Eyes: Pupils are equal round reactive to light. Conjunctiva are noninjected. ENT: Pharynx is clear without erythema or exudate. Mucous membranes are moist. Neck supple without meningeal signs. Respiratory: Clear to auscultation bilaterally. Breath sounds are equal bilaterally. Cardiovascular: Regular rate and rhythm. No rubs or gallops. GI: Soft, nondistended and nontender. Bowel sounds are present. Musculoskeletal: Injection site bilateral antecubital fossa without signs of infection. Integumentary: No cyanosis. Neurological: The patient is awake and alert. No focal deficits. Psychiatric: Depressed affect. Medical Decision & Procedures Laboratory Results 10/22/17 13:41 10/22/17 13:41 Test 10/22/17 12:38 10/22/17 13:41 Urine Color DK YELLOW Urine Appearance CLEAR (CLEAR) Urine pH 5.0 (4.5-7.5) Urine Specific [place] 1.024 (1.000-1.030) Urine Protein NEG (NEG) Urine Glucose (UA) NEG (NEG) Urine Ketones NEG (NEG) Urine Occult Blood NEG (NEG) Urine Nitrite NEG (NEG) Urine Bilirubin NEG (NEG) Urine Urobilinogen NEG (NEG) Urine Leukocyte Esterase NEG (NEG) Urine Test NEG (NEG) Urine Opiates Screen POS (NEG) Urine Methadone, Qualitative NEG (NEG) Urine Barbiturates NEG (NEG) Urine Phencyclidine (PCP) Level NEG (NEG) Ur Amphetamine/Methamphetamine POS (NEG) MDMA (Ecstasy) Screen POS (NEG) Urine Benzodiazepines Screen POS (NEG) Urine Cocaine Metabolite POS (NEG) Urine Marijuana (THC) POS (NEG) Red Blood Count 4.82 M/uL (4.2-5.4) Mean Corpuscular Volume 87.8 fL (80-100) Mean Corpuscular Hemoglobin 30.3 pg (25-34) Mean Corpuscular Hemoglobin Concent 34.5 g/dl (32-36) RDW Standard Deviation 43.2 fL (36.4-46.3) RDW Coefficient of Variation 13.4 % (11.5-14.5) Mean Platelet Volume 9.6 fL (7.4-10.4) Anion Gap 4.0 mmol/L (3-11) Est Creatinine Clear Calc Drug Dose 87.1 ml/min Estimated GFR () 97.4 Estimated GFR (Non- 84.1 BUN/Creatinine Ratio 12.1 (10-20) Calcium Level 8.9 mg/dl (8.5-10.1) Total Bilirubin 0.6 mg/dl (0.2-1) Direct Bilirubin 0.1 mg/dl (0-0.2) Aspartate Amino Transf (AST/SGOT) 28 U/L (15-37) Alanine Aminotransferase (ALT/SGPT) 42 U/L (12-78) Alkaline Phosphatase 64 U/L (45-117) Total Protein 7.8 gm/dl (6.4-8.2) Albumin 3.8 gm/dl (3.4-5.0) Thyroid Stimulating Hormone (TSH) 1.630 uIu/ml (0.300-4.500) Salicylates Level 3.1 mg/dl (2.8-20) Acetaminophen Level < 2 ug/ml (10-30) Ethyl Alcohol mg/dL < 3.0 mg/dl (0-3) Laboratory results as reviewed by me. ED Course 1226: The patient was evaluated in room A08. A complete history and physical exam was performed. 1525: The patient was denied by [facility] because of her drug use. Medical Decision This is a 32-year-old female presents for mental health evaluation. I did perform a limited focused review of portions of the patient's old chart on the electronic medical record. The patient has had no recent pertinent visits to this hospital. I did evaluate the patient as noted above. She is presenting with suicidal ideation with a plan. She has had stressors at home. I did personally review the patient's urine analysis as described above. I did order and review the patient's blood work as noted in the electronic medical record. I did medically clear the patient. She was evaluated by the mental health case supervisor. She was accepted to [facility]. She was transferred there securely. Medication Reconcilliation Current Medication List: was personally reviewed by me Blood Pressure Screening Patient's blood pressure: Normal blood pressure Impression Primary Impression: Mood disorder Additional Impression: Suicidal ideation Scribe Attestation The scribe's documentation has been prepared under my direct and personally reviewed by me in its entirety. I confirm that the note above accurately reflects all work, treatment, procedures, and medical decision making performed by me. Departure Information Dispostion Still a Patient Referrals No Doctor, Assigned (PCP) Patient Instructions My [facility] Problem Qualifiers
== END 2017-10-22 18:02 ==
LOC: C.EDB 12:21 → C.EDA 18:02
DX: F39 Unspecified mood [affective] disorder (principal); R45.851 Suicidal ideations; F43.9 Reaction to severe stress, unspecified; F41.9 Anxiety disorder, unspecified; Z79.899 Other long term (current) drug therapy; Z91.5 Personal history of self-harm; Z82.49 Family history of ischemic heart disease and other diseases of the circulatory system; Z83.3 Family history of diabetes mellitus; F17.200 Nicotine dependence, unspecified, uncomplicated

== ENCOUNTER → 2017-11-07 | Outpatient (CLI) | payer OTHER ==
[~2017-11-07] MED LIST changes: +ALPR1TAB2 PO; +BUPR150T7 PO; +BUPR2SUB SL; +CTP1 PO; +CTP1CL PO; -MTR600X PO; +NRN600 PO; -PRENTAB26 PO; -SBTSL/8 SL; -SERT50TA PO; -VLT500 PO
[2017-11-07 12:23] LABS: BASO % 0.3 %; BASO ABS # 0.02 K/uL (0-0.2); EOS % 0.8 %; EOS ABS # 0.05 K/uL (0-0.5); HEMATOCRIT 42.8 % (37-47); HEMOGLOBIN 14.7 g/dL (12.0-16.0); IG# 0.01 K/uL (0.00-0.02); LYMPH % 34.3 %; LYMPH ABS # 2.15 K/uL (1.2-3.4); MEAN CELL VOLUME 88.8 fL (80-100); MEAN CORPUSCULAR HEMOGLOBIN 30.5 pg (25-34); MEAN CORPUSCULAR HGB CONC 34.3 g/dl (32-36); MEAN PLATELET VOLUME 9.8 fL (7.4-10.4); MONO ABS # 0.25 K/uL (0.11-0.59); NEUT % 60.4 %; NEUT ABS # 3.79 K/uL (1.4-6.5); PLATELET COUNT 343 K/uL (130-400); RED CELL DISTRIBUTION WIDTH CV 13.5 % (11.5-14.5); RED CELL DISTRIBUTION WIDTH SD 44.4 fL (36.4-46.3); WHITE BLOOD COUNT 6.27 K/uL (4.8-10.8)
[2017-11-07 12:40] LABS: ALBUMIN 4.3 gm/dl (3.4-5.0); ALT/SGPT 49 U/L (12-78); AST/SGOT 22 U/L (15-37); BLOOD UREA NITROGEN 10 mg/dl (7-18); CALCIUM 10.1 mg/dl (8.5-10.1); CARBON DIOXIDE 29 mmol/L (21-32); CREATININE 0.88 mg/dl (0.60-1.20); GLUCOSE 95 mg/dl (70-99); HEMOGLOBIN A1C 5.3 % (4.5-5.6); SODIUM 137 mmol/L (136-145)
[2017-11-07 12:50] LABS: ALKALINE PHOSPHATASE 57 U/L (45-117); TOTAL PROTEIN 8.3 gm/dl (6.4-8.2)
[2017-11-11 10:15] LABS: ANA SCREEN TC 249X NEGATIVE (NEGATIVE); ANTI-SS-A 6.6 POS AI (<1.0 NEG); ANTI-SS-B 1.1 POS AI (<1.0 NEG); ANTICARDIOLIPID AB IGA <11 APL (< = 11); COMPLEMENT C3 TC 44859W 113 MG/DL (90-180); COMPLEMENT C4 TC 44982E 21 MG/DL (16-47); HEPATITIS C VIRAL RNA BY PCR 2680 IU/ML (<15); HEPATITIS C VIRAL RNA(LOG) PCR 3.43 LOG IU/ML (<1.18); MICROSOMAL AB <1 IU/ML (<9)
== END | disposition home or self-care (01) ==
LOC: C.LAB1850 09:36
PROVIDERS: ATTEND Internal Medicine Infectious Disease
DX: B18.2 Chronic viral hepatitis C (principal)

== ENCOUNTER → 2017-12-09 | Outpatient (CLI) | payer OTHER | END | disposition home or self-care (01) | LOC: C.LAB1850 09:39 | PROVIDERS: ATTEND Internal Medicine Infectious Disease | DX: B18.2 Chronic viral hepatitis C (principal) ==